=== PATIENT | female | born 1980 | race African-American/Black ===

== ENCOUNTER 2020-01-19 04:55 | Day surgery (SDC) | payer OTHER ==
[2020-01-10 09:52] VITALS: BMI 47.2
[2020-01-19] MEDS ORDERED: HYDROmorphone *PCA* 10MG/50ML DISP.SYRIN ONE (13:21)
[2020-01-19] MEDS ORDERED: HYDROmorphone *PCA* 10MG/50ML DISP.SYRIN PCA SCH (13:45)
[2020-01-19] MEDS ORDERED: SODIUM CHLORIDE 500 ML IV SCH (14:00)
[2020-01-19] MEDS ORDERED: ONDANSETRON 4 MG/2 ML VIAL ONE (16:22)
[2020-01-19] MEDS: ONDANSETRON 4 MG/2 ML VIAL IVPUSH PRN ×2 (16:25→22:44)
[2020-01-19] MEDS: SODIUM CHLORIDE 0.45% 1,000 ML IV SCH ×2 (17:00→23:04)
--- NOTE | 2020-01-19 18:24 | HP ---
Admitting History and Physical - Primary Care Physician PCP: Ivanna Marx - Admission Chief Complaint: ASKED BY JOE TO ADMIT THIS PATIENT ON HER BEHALF History of Present Illness: PT TRANSFERRED FROM PACU AFTER HAVING EMBOLIZATION OF UTERINE FIBROID ALERT AND ORIENTED TALKING, PAIN IS CONTROLLED - Past Medical History Cardiovascular: Yes: HTN Reproductive: Yes: Fibroids ...LMP: 01/09/20 - Smoking History Smoking history: Never smoked Have you smoked in the past 12 months: No - Alcohol/Substance Use Hx Alcohol Use: No Home Medications - Allergies Allergies/Adverse Reactions: Allergies Allergy/AdvReac Type Severity Reaction Status Date / Time No Known Allergies Allergy Verified 01/10/20 09:44 - Home Medications Home Medications: Ambulatory Orders Hydrochlorothiazide [Hctz -] 25 mg PO DAILY 01/18/20 Losartan Potassium 50 mg PO DAILY 01/18/20 Review of Systems - Review of Systems Constitutional: reports: No Symptoms HENT: reports: No Symptoms Cardiovascular: reports: No Symptoms Respiratory: reports: No Symptoms Gastrointestinal: reports: No Symptoms Genitourinary: reports: No Symptoms Breasts: reports: No Symptoms Reported Musculoskeletal: reports: No Symptoms Integumentary: reports: No Symptoms Neurological: reports: No Symptoms Physical Examination Vital Signs: Vital Signs Temperature 98.0 F 01/19/20 16:50 Pulse Rate 78 01/19/20 16:50 Respiratory Rate 18 01/19/20 16:50 Blood Pressure 140/80 01/19/20 16:50 O2 Sat by Pulse Oximetry (%) 100 01/19/20 16:50 Constitutional: Yes: No Distress HENT: Yes: Atraumatic Neck: Yes: Supple Cardiovascular: Yes: Regular Rate and Rhythm Respiratory: Yes: Rhonchi Gastrointestinal: Yes: Normal Bowel Sounds Extremities: Yes: WNL Peripheral Pulses WNL: Yes Neurological: Yes: Alert, Oriented Problem List - Problems (1) Fibroids Assessment/Plan: S/P EMBOLIZATION PAIN CONTROL [employer] CNSULT FU LABS IN AM Code(s): D21.9 - BENIGN NEOPLASM OF CONNECTIVE AND OTHER SOFT TISSUE, UNSP Assessment/Plan Laboratory Tests 01/19/20 08:02 Urine HCG, Qual Negative Active Medications Generic Name Dose Route Start Last Admin Trade Name Freq PRN Reason Stop Dose Admin Diphenhydramine HCl 12.5 mg 01/19/20 13:45 Benadryl Injection - IVPUSH Q4H PRN PRURITIS Hydromorphone HCl 10 mg 01/19/20 13:45 01/19/20 13:30 Hydromorphone 10 Mg/50 Ml-Ns [employer] 01/26/20 13:40 10 mg [employer] THE[place]ORE Administration Protocol Sodium Chloride 1,000 mls @ 100 mls/hr 01/19/20 15:15 1/2 Normal Saline IV 01/20/20 15:14 ASDIR THEODORE Ondansetron HCl 4 mg 01/19/20 13:45 01/19/20 16:25 Zofran Injection IVPUSH 4 mg Q4H PRN Administration NAUSEA AND/OR VOMITING MONITOR BP ,MONITOR VITALS PAIN MANAGEMENT COVERING FOR DR MARX TODAY
[2020-01-20] MEDS: DOCUSATE SODIUM 100 MG CAPSULE (FP) PO SCH ×2 (06:09→14:38)
[2020-01-20 09:06] LABS: BASO % 0.4 % (0-2.0); HEMATOCRIT 35.1 % (32.4-45.2); HEMOGLOBIN 11.2 GM/dL (10.7-15.3); LYMPH % 10.8 % (8-40); MCH 26.7 pg (25.7-33.7); MEAN CELL VOLUME 83.5 fl (80-96); MEAN PLT VOLUME 8.5 fl (7.5-11.1); MONO % 5.2 % (3.8-10.2); NEUT % 83.6 % (42.8-82.8); PLATELET COUNT 283 K/MM3 (134-434); RBC 4.21 M/mm3 (3.60-5.2); RDW 15.4 % (11.6-15.6); WHITE BLOOD COUNT 8.8 K/mm3 (4.0-10.0)
[2020-01-20] MEDS: SODIUM CHLORIDE 0.45% 1,000 ML IV SCH (09:36)
[2020-01-20 09:42] LABS: BILIRUBIN,TOTAL 0.5 mg/dL (0.2-1); BLOOD UREA NITROGEN 10.2 mg/dL (7-18); CALCIUM 8.4 mg/dL (8.5-10.1); CREATININE 0.8 mg/dL (0.55-1.3); POTASSIUM 3.7 mmol/L (3.5-5.1); TOT PROT 7.3 g/dl (6.4-8.2)
[2020-01-20 14:28] VITALS: BP 147/79; PULSE 64; TEMP 98.9
[2020-01-20] MEDS ORDERED: oxyCODONE HCL 5 MG TABLET PO PRN (14:48)
[2020-01-20] MEDS ORDERED: IBUPROFEN 400 MG TABLET (FP) PO PRN (14:49)
[2020-01-20] MEDS ORDERED: PCA PUMP NR ONE (14:57)
== END 2020-01-20 17:51 | disposition home or self-care (01) ==
LOC: JASUSAT 04:55 → J6S 17:59 → JASUSAT 01-20 17:51
PROVIDERS: ATTEND Radiology Diagnostic Radiology
PROC: 04LE3DT Occlusion of Right Uterine Artery with Intraluminal Device, Percutaneous Approach (ICD-10-PCS; 2020-01-19)
PROC: 04LF3DU Occlusion of Left Uterine Artery with Intraluminal Device, Percutaneous Approach (ICD-10-PCS; principal; 2020-01-19 10:00)
DX: D25.9 Leiomyoma of uterus, unspecified (principal)
CPT/HCPCS: 36415; 37243; 80053; 84703; 85025; 94760; C1760; C1769; C1887

== ENCOUNTER 2021-12-10 14:44 | Emergency (ER) | payer OTHER ==
[2021-12-10 15:28] VITALS: BP 130/90; PULSE 75; RESP 16; TEMP 97.9; BMI 45.4
[2021-12-10] MEDS ORDERED: KETOROLAC TROMETHAMINE 30 MG/1 ML VIAL IM ONE (17:09)
[2021-12-10] MEDS ORDERED: KETOROLAC TROMETHAMINE 30 MG/1 ML VIAL ONE (17:27)
== END 2021-12-10 17:35 | disposition home or self-care (01) ==
LOC: JERFT 14:44
PROC: 3E0233Z Introduction of Anti-inflammatory into Muscle, Percutaneous Approach (ICD-10-PCS; principal; 2021-12-10)
DX: M54.9 Dorsalgia, unspecified (principal)
CPT/HCPCS: 99283-25